=== PATIENT | male | born 1995 | race African-American/Black ===

== ENCOUNTER 2017-05-07 16:26 | Emergency (ER) | payer SELFPAY ==
[~2017-05-07] VITALS: Ht 167.6 cm; Wt 68.0 kg
[2017-05-07] MEDS ORDERED: TETANUS, DIPHTHERIA, PERTUSSIS VAC/PF 0.5ML (>7YR OLD) IM ONE (19:15)
[2017-05-07] MEDS ORDERED: BACITRACIN ZINC OINT UDPKT TOP ONE (19:15)
[2017-05-07] MEDS ORDERED: HYDROCODONE/ACETAMINOPHEN 5/325MG TABLET PO ONE (19:15)
[2017-05-07] MEDS ORDERED: LIDOCAINE HCL 1% 20ML VIAL (Pyxis) INJ MC ONE (19:15)
[2017-05-07 21:50] VITALS: BP 127/74
== END 2017-05-07 21:50 | disposition home or self-care (01) ==
LOC: ER 16:55
DX: S51.812A Laceration without foreign body of left forearm, initial encounter (principal); F12.10 Cannabis abuse, uncomplicated; X99.8XXA Assault by other sharp object, initial encounter; Y93.89 Activity, other specified; Y92.488 Other paved roadways as the place of occurrence of the external cause
CPT/HCPCS: 12005; 73130; 90471; 90715; 99284; A4217; J3490; Z7610